=== PATIENT | male | born 1965 | race Caucasian/White ===

== ENCOUNTER 2016-11-16 09:39 | Inpatient (IN) | payer BC ==
[~2016-11-16] VITALS: Ht 185.4 cm; Wt 98.2 kg
[2016-11-16 09:42] VITALS: BP 180/106; PULSE 91; RESP 19; TEMP 97.6; O2SAT 99
[2016-11-16 09:50] VITALS: O2SAT 100
[2016-11-16] MEDS ORDERED: LISI-519 PO (09:50)
[2016-11-16] MEDS ORDERED: SODIUM CHLORIDE 0.9% FLUSH 5 ML FLUSH IV FLUSH PRN (10:00)
[2016-11-16] MEDS ORDERED: DILTIAZEM HCL 25 MG/5 ML VIAL IV PUSH ONE (10:00)
[2016-11-16 10:15] LABS: AUTOMATED NEUTROPHIL # 3.9 TH/MM3 (1.8-7.7); BASOPHIL # 0.1 TH/MM3 (0-0.2); BASOPHIL % 1.1 % (0.0-2.0); EOSINOPHIL # 0.1 TH/MM3 (0-0.4); EOSINOPHIL % 1.7 % (0.0-4.0); HEMATOCRIT 48.4 % (39.0-51.0); HEMO FLAGS DIFF FINAL; LYMPH % 32.5 % (9.0-44.0); LYMPHOCYTE # 2.3 TH/MM3 (1.0-4.8); MEAN CELL VOLUME 87.8 FL (80.0-100.0); MEAN CORPUSCULAR HGB CONC 34.2 % (32.0-36.0); MONO % 11.4 % (0.0-8.0); NEUT % 53.3 % (16.0-70.0); PLATELET COUNT 209 TH/MM3 (150-450); RED BLOOD COUNT 5.51 MIL/MM3 (4.50-5.90); RED CELL DISTRIBUTION WIDTH 12.9 % (11.6-17.2); WHITE BLOOD COUNT 7.2 TH/MM3 (4.0-11.0)
--- NOTE | 2016-11-16 10:22 | RADRPT ---
EXAM DATE/TIME: 11/16/2016 10:07 [place] COMPARISON: No previous studies available for comparison. INDICATIONS : Short of breath and chest pressure. MEDICAL HISTORY : Hypertension. SURGICAL HISTORY : None. ENCOUNTER: Initial ACUITY: 1 day PAIN SCORE: 4/10 LOCATION: Bilateral chest FINDINGS: A single view of the chest demonstrates the lungs to be symmetrically aerated without evidence of mas s, infiltrate or effusion. Minimal and hepatic changes in the lateral right base in the region of th e costophrenic angle. The cardiomediastinal contours are unremarkable. Osseous structures are intact . CONCLUSION: Minimal atelectatic changes above the right hemidiaphragm. Lungs are otherwise clear. Ronnie Phelps MD on November 16, 2016 at 10:18 Board Certified Radiologist. This report was verified electronically.
--- NOTE | 2016-11-16 10:27 | PD ---
HPI . Chest pain Chief Complaint: Chest Pain Time Seen by Provider: 09:58 Travel History International Travel<30 days: No Contact w/Intl Traveler<30days: No Traveled to known affect area: No History of Present Illness HPI This patient presents with the chief complaint of chest pain. Onset of symptoms was this morning. His chest pain is described as a pressure-like sensation which does not radiate. The pain is associated with dyspnea, dizziness and diaphoresis. His symptoms are exacerbated by activity. No relieving factor. Pain is rated 6/10. Patient admits to a history of hypertension but denies any history of heart disease. He denies any previous history of dysrhythmia. PFS Past Medical History Hypertension: Yes Respiratory: Yes (PNEUMOTHORAX X 2) Past Surgical History Other Surgery: Yes (LILIANA HERNIA REPAIR, PNEUMOTHORAX X 2) Social History Alcohol Use: Yes (ROSLYN) Tobacco Use: No Substance Use: No Allergies-Medications (Allergen,Severity, Reaction): Coded Allergies: No Known Allergies (Unverified , 11/16/16) Reported Meds & Prescriptions Reported Meds & Active Scripts Active Reported Lisinopril 5 Mg Tab 5 Mg PO DAILY Review of Systems Except as stated in HPI: all other systems reviewed are Neg General / Constitutional: No: Fever, Chills HENT: Positive: Lightheadedness Cardiovascular: Positive: Chest Pain or Discomfort Respiratory: Positive: Shortness of Breath Gastrointestinal: No: Nausea Physical Exam Narrative GENERAL: Patient is awake and alert and does not appear to be in any acute distress. SKIN: Warm and dry. HEAD: Atraumatic. Normocephalic. EYES: Pupils equal and round. ENT: No nasal bleeding or discharge. Mucous membranes pink and moist. NECK: Trachea midline. Neck is supple. CARDIOVASCULAR: Irregularly irregular rate and rhythm with a rate of approximately 1:30. RESPIRATORY: No accessory muscle use. Lungs are clear with good air movement throughout. GASTROINTESTINAL: Abdomen soft, non-tender, nondistended. MUSCULOSKELETAL: No obvious deformities. No edema. NEUROLOGICAL: Awake and alert. No obvious cranial nerve deficits. Motor grossly within normal limits. Normal speech. PSYCHIATRIC: Appropriate mood and affect; insight and judgment normal. Data Data Last Documented VS Vital Signs Date Time Temp Pulse Resp B/P (MAP) Pulse Ox O2 Delivery O2 Flow Rate FiO2 11/16/16 10:30 79 12 126/75 (92) 100 Nasal Cannula 2.00 11/16/16 09:42 97.6 Orders Orders Electrocardiogram (11/16/16 09:48) Complete Blood Count With Diff (11/16/16 09:48) Basic Metabolic Panel (Bmp) (11/16/16 09:48) Ckmb (Isoenzyme) Profile (11/16/16 09:48) Troponin I (11/16/16 09:48) Chest, Single Ap (11/16/16 09:48) Iv Access Insert/Monitor (11/16/16 09:48) Ecg Monitoring (11/16/16 09:48) Oxygen Administration (11/16/16 09:48) Oximetry (11/16/16 09:48) Blood Pressure (11/16/16 09:58) Vital Signs (11/16/16 09:58) Diltiazem Inj (Cardizem Inj) (11/16/16 10:00) Sodium Chloride 0.9% Flush (Ns Flush) (11/16/16 10:00) CKMB (11/16/16 10:05) CKMB% (11/16/16 10:05) Consult Cardiology (11/16/16 ) (Hub Use Only)Inp Phy Cons/Ref (11/16/16 ) Admit Order (Ed Use Only) (11/16/16 12:26) Labs Laboratory Tests Test 11/16/16 10:05 White Blood Count 7.2 TH/MM3 Red Blood Count 5.51 MIL/MM3 Hemoglobin 16.5 GM/DL Hematocrit 48.4 % Mean Corpuscular Volume 87.8 FL Mean Corpuscular Hemoglobin 30.0 PG Mean Corpuscular Hemoglobin Concent 34.2 % Red Cell Distribution Width 12.9 % Platelet Count 209 TH/MM3 Mean Platelet Volume 9.7 FL Neutrophils (%) (Auto) 53.3 % Lymphocytes (%) (Auto) 32.5 % Monocytes (%) (Auto) 11.4 % Eosinophils (%) (Auto) 1.7 % Basophils (%) (Auto) 1.1 % Neutrophils # (Auto) 3.9 TH/MM3 Lymphocytes # (Auto) 2.3 TH/MM3 Monocytes # (Auto) 0.8 TH/MM3 Eosinophils # (Auto) 0.1 TH/MM3 Basophils # (Auto) 0.1 TH/MM3 CBC Comment DIFF FINAL Differential Comment Blood Urea Nitrogen 18 MG/DL Creatinine 0.96 MG/DL Random Glucose 119 MG/DL Calcium Level 9.4 MG/DL Sodium Level 137 MEQ/L Potassium Level 4.0 MEQ/L Chloride Level 105 MEQ/L Carbon Dioxide Level 24.2 MEQ/L Anion Gap 8 MEQ/L Estimat Glomerular Filtration Rate 83 ML/MIN Total Creatine Kinase 199 U/L Creatine Kinase MB 2.0 NG/ML Troponin I LESS THAN 0.02 NG/ML MDM Medical Decision Making Medical Screen Exam Complete: Yes Emergency Medical Condition: Yes Interpretation(s) EKG shows atrial fibrillation with a rate of 133. No ST segment elevation or depression. Differential Diagnosis Differential diagnosis of chest pain includes but is not limited to musculoskeletal pain, pulmonary embolism, acute coronary syndrome, pneumonia, pleurisy Narrative Course This patient presents with the chief complaint of chest pain. He was found to be in atrial fibrillation with a rapid ventricular response. He has been treated with IV Cardizem and his rate is now in the 70-80 range. He continues to be in atrial fibrillation. He states that he feels much better following rate control. CBC & BMP Diagram 11/16/16 10:05 Calcium Level 9.4 Initial cardiac enzymes are negative. Last Impressions Chest X-Ray 11/16/16 0948 Signed Impressions: Service Date/Time: Wednesday, November 16, 2016 10:07 - CONCLUSION: Minimal atelectatic changes above the right hemidiaphragm. Lungs are otherwise clear. Ronnie Phelps MD This patient has new onset atrial fibrillation. He needs to be admitted to the hospital for further evaluation. Critical Care Narrative Aggregate critical care time was 35 minutes. Time to perform other separately billable procedures was not included in the critical care time. My time did not include minutes spent treating any other patients simultaneously or on activities that did not directly contribute to the patient's treatment. The services I provided to this patient were to treat and/or prevent clinically significant deterioration due to AF with RVR, chest pain I provided critical care services requiring my management, as noted below: Chart data review, documentation time, medication orders and management, vital sign assessments/reviewing monitor data, ordering and reviewing lab tests, ordering and interpreting/reviewing x-rays and diagnostic studies, care of the patient and discussion of the patient with the admitting physicians Physician Communication Physician Communication Dr. Valerio and Dr. Izquierdo Diagnosis Primary Impression: Chest pain Qualified Codes: R07.9 - Chest pain, unspecified Additional Impression: Atrial fibrillation with RVR Admitting Information Admitting Physician Requests: Admit Condition: Stable Tanya Higginbotham MD Nov 16, 2016 10:27
[2016-11-16 10:30] VITALS: BP 126/75; PULSE 79; RESP 12; O2SAT 100
[2016-11-16 10:38] LABS: CREATINE KINASE 199 U/L (39-308)
[2016-11-16 10:40] LABS: ANION GAP 8 MEQ/L (5-15); BICARBONATE 24.2 MEQ/L (21.0-32.0); BLOOD UREA NITROGEN 18 MG/DL (7-18); CHLORIDE 105 MEQ/L (98-107); GLOMERULAR FILTRATION RATE 83 ML/MIN (>89); SODIUM (NA) 137 MEQ/L (136-145)
[2016-11-16] MEDS ORDERED: ONDANSETRON HCL 4 MG/2 ML VIAL IV PRN (12:45)
[2016-11-16] MEDS ORDERED: DOCUSATE SODIUM 50 MG/SENNA 8.6 MG TAB PO PRN (12:45)
[2016-11-16] MEDS ORDERED: ACETAMINOPHEN 325 MG TAB PO PRN (12:45)
[2016-11-16] MEDS ORDERED: SODIUM CHLORIDE 0.9% FLUSH 10 ML FLUSH IV FLUSH PRN (12:45)
[2016-11-16 14:26] VITALS: BP 117/86; PULSE 96; RESP 26; O2SAT 97
--- NOTE | 2016-11-16 14:34 | HHI.HP ---
[facility] Admission Diagnosis chest pain, new onset AF with RVR Diagnoses: (1) Benign hypertension (2) Atrial fibrillation with RVR (3) Chest pain Chief Complaint: Chest pressure Travel History International Travel<30 Days: No Contact w/Intl Traveler <30 Da: No Traveled to Known Affected Are: No History of Present Illness 50-year-old man with a history of hypertension who presented to the ED for evaluation of acute onset of chest tightness, pressure like rated 6/10 in intensity and described as an elephant sitting on my chest associated with shortness of breath as well as dizziness lasting over 30 minutes. Patient states, he woke up around 3 AM with a sensation of severe chest tightness, but denies any orthopnea. He denies any radiation of symptoms which lasted way past 4:30 AM. He has no prior history of heart catheterization. While in the ED, patient was found to be in A. fib and denies any prior history. There is no report of GI bleeding, hemoptysis or bowel dysfunction. Patient endorses strong family history of heart disease Review of Systems Except as stated in HPI: all other systems reviewed are Neg Past Family Social History Past Medical History Hypertension Past Surgical History Bilateral Hernia repair Reported Medications Lisinopril 5 mg daily Allergies: Coded Allergies: No Known Allergies (Unverified , 11/16/16) Family History Strong family history of heart disease with his paternal grandfather from heart attack. Social History Alcohol Use: Yes (ROSLYN) Tobacco Use: No Substance Use: No Physical Exam Vital Signs Vital Signs Date Time Temp Pulse Resp B/P (MAP) Pulse Ox O2 Delivery O2 Flow Rate FiO2 11/16/16 14:26 96 26 117/86 (96) 97 Room Air 11/16/16 10:30 79 12 126/75 (92) 100 Nasal Cannula 2.00 11/16/16 09:50 100 Room Air 11/16/16 09:50 Nasal Cannula 2.00 11/16/16 09:45 140 100 Room Air 11/16/16 09:42 97.6 91 19 180/106 (130) 99 Physical Exam GENERAL: This is a well-nourished, well-developed patient, in no apparent distress. SKIN: No rashes, ecchymoses or lesions. Cool and dry. HEAD: Atraumatic. Normocephalic. No temporal or scalp tenderness. EYES: Pupils equal round and reactive. Extraocular motions intact. No scleral icterus. No injection or drainage. ENT: Nose without bleeding, purulent drainage or septal hematoma. Throat without erythema, tonsillar hypertrophy or exudate. Uvula midline. Airway patent. NECK: Trachea midline. No JVD or lymphadenopathy. Supple, nontender, no meningeal signs. CARDIOVASCULAR: Regular rate and rhythm without murmurs, gallops, or rubs. RESPIRATORY: Clear to auscultation. Breath sounds equal bilaterally. No wheezes , rales, or rhonchi. GASTROINTESTINAL: Abdomen soft, non-tender, nondistended. No hepato-splenomegaly , or palpable masses. No guarding. MUSCULOSKELETAL: Extremities without clubbing, cyanosis, or edema. No joint tenderness, effusion, or edema noted. No calf tenderness. Negative Homans sign bilaterally. NEUROLOGICAL: Awake and alert. Cranial nerves II through XII intact. Motor and sensory grossly within normal limits. Five out of 5 muscle strength in all muscle groups. Normal speech. Laboratory Laboratory Tests Test 11/16/16 10:05 11/16/16 12:55 White Blood Count 7.2 Red Blood Count 5.51 Hemoglobin 16.5 Hematocrit 48.4 Mean Corpuscular Volume 87.8 Mean Corpuscular Hemoglobin 30.0 Mean Corpuscular Hemoglobin Concent 34.2 Red Cell Distribution Width 12.9 Platelet Count 209 Mean Platelet Volume 9.7 Neutrophils (%) (Auto) 53.3 Lymphocytes (%) (Auto) 32.5 Monocytes (%) (Auto) 11.4 Eosinophils (%) (Auto) 1.7 Basophils (%) (Auto) 1.1 Neutrophils # (Auto) 3.9 Lymphocytes # (Auto) 2.3 Monocytes # (Auto) 0.8 Eosinophils # (Auto) 0.1 Basophils # (Auto) 0.1 CBC Comment DIFF FINAL Differential Comment Blood Urea Nitrogen 18 Creatinine 0.96 Random Glucose 119 Calcium Level 9.4 Sodium Level 137 Potassium Level 4.0 Chloride Level 105 Carbon Dioxide Level 24.2 Anion Gap 8 Estimat Glomerular Filtration Rate 83 Total Creatine Kinase 199 Creatine Kinase MB 2.0 Troponin I LESS THAN 0.02 Urine Opiates Screen NEG Urine Barbiturates Screen NEG Urine Amphetamines Screen NEG Urine Benzodiazepines Screen NEG Urine Cocaine Screen NEG Urine Cannabinoids Screen NEG Result Diagram: 11/16/16 1005 11/16/16 1005 Imaging Last Impressions Chest X-Ray 11/16/16 0948 Signed Impressions: Service Date/Time: Wednesday, November 16, 2016 10:07 - CONCLUSION: Minimal atelectatic changes above the right hemidiaphragm. Lungs are otherwise clear. MD Raj Kate VTE Risk Assessment Capalyssa VTE Risk Assessment: No/Low Risk (score <= 1) Caprini Risk Assessment Model Point Value = 1 Point Value = 2 Point Value = 3 Point Value = 5 Age 41-60 Minor surgery BMI > 25 kg/m2 Swollen legs Varicose veins or History of unexplained or recurrent spontaneous Oral contraceptives or hormone replacement Sepsis (< 1 month) Serious lung disease, including pneumonia (< 1 month) Abnormal pulmonary function Acute myocardial infarction Congestive heart failure (< 1 month) History of inflammatory bowel disease Medical patient at bed rest Age 61-74 Arthroscopic surgery Major open surgery (> 45 min) Laparoscopic surgery (> 45 min) Malignancy Confined to bed (> 72 hours) Immobilizing plaster cast Central venous access Age >= 75 History of VTE Family history of VTE Factor V Leiden Prothrombin [id number] Lupus anticoagulant Anticardiolipin antibodies Elevated serum homocysteine Heparin-induced thrombocytopenia Other congenital or acquired thrombophilia Stroke (< 1 month) Elective arthroplasty Hip, pelvis, or leg fracture Acute spinal cord injury (< 1 month) Prophylaxis Regimen Total Risk Factor Score Risk Level Prophylaxis Regimen 0-1 Low Early ambulation 2 Moderate Order ONE of the following: *Sequential Compression Device (SCD) *Heparin 5000 units SQ BID 3-4 Higher Order ONE of the following medications: *Heparin 5000 units SQ TID *Enoxaparin/Lovenox 40 mg SQ daily (WT < 150 kg, CrCl > 30 mL/min) *Enoxaparin/Lovenox 30 mg SQ daily (WT < 150 kg, CrCl > 10-29 mL/min) *Enoxaparin/Lovenox 30 mg SQ BID (WT < 150 kg, CrCl > 30 mL/min) AND/OR *Sequential Compression Device (SCD) 5 or more Highest Order ONE of the following medications: *Heparin 5000 units SQ TID (Preferred with Epidurals) *Enoxaparin/Lovenox 40 mg SQ daily (WT < 150 kg, CrCl > 30 mL/min) *Enoxaparin/Lovenox 30 mg SQ daily (WT < 150 kg, CrCl > 10-29 mL/min) *Enoxaparin/Lovenox 30 mg SQ BID (WT < 150 kg, CrCl > 30 mL/min) AND *Sequential Compression Device (SCD) Assessment and Plan Problem List: (1) Atrial fibrillation with RVR ICD Code: I48.91 - Unspecified atrial fibrillation Status: Acute (2) Chest pain ICD Code: R07.9 - Chest pain, unspecified Status: Acute (3) Benign hypertension ICD Code: I10 - Essential (primary) hypertension Assessment and Plan 50-year-old man with New onset atrial fibrillation Spontaneously resolve with Cardizem IV bolus 1 in ED If recurrence, consider Cardizem drip Rule out thyroid dysfunction with TSH and free T4 Continue ACS ruled out per protocol with serial cardiac enzyme and EKGs Start aspirin 81 mg daily and check lipid profile Check 2-D echo and Lexiscan stress a.m. Consult cardiology Atypical chest pain Treatment as in above Hypertension Resume Norvasc 5 mg daily DVT prophylaxis: Bilateral SCDs Code Status Full code Discussed Condition With Patient, ED physician Physician Certification 2 Midnight Certification Type: Admission for Inpatient Services Order for Inpatient Services The services are ordered in accordance with Medicare regulations or non- Medicare payer requirements, as applicable. In the case of services not specified as inpatient-only, they are appropriately provided as inpatient services in accordance with the 2-midnight benchmark. Estimated LOS (days): 2 days is the estimated time the patient will need to remain in the hospital, assuming treatment plan goals are met and no additional complications. Post-Hospital Plan: Not yet determined Problem Qualifiers (1) Chest pain: Qualified Codes: R07.9 - Chest pain, unspecified Pérez Izquierdo MD Nov 16, 2016 14:33
[2016-11-16] MEDS ORDERED: CYCL1TAB29 PO (14:59)
[2016-11-16] MEDS ORDERED: DICL50TA3 PO (14:59)
[2016-11-16] MEDS ORDERED: NAPR500T PO (14:59)
[2016-11-16] MEDS ORDERED: META1TAB19 PO (14:59)
[2016-11-16] MEDS ORDERED: AMLO5TAB2 PO (14:59)
[2016-11-16 16:55] LABS: CREATINE KINASE 144 U/L (39-308)
[2016-11-16 18:00] VITALS: BP 141/90; PULSE 75; RESP 20; TEMP 97.8; O2SAT 97
--- NOTE | 2016-11-16 19:29 | EKG ---
Date Performed: 11/16/2016 Time Performed: 09:44:35 PTAGE: 50 years EKG: ATRIAL FIBRILLATION WITH RAPID VENTRICULAR RESPONSE NONSPECIFIC T-WAVE ABNORMALITY ABNORMAL ECG NO PREVIOUS TRACING DOCTOR: Roshan Gonzalez Interpretating Date/Time 11/16/2016 19:27:39
[2016-11-16 20:00] VITALS: BP 127/81; PULSE 82; PULSE 85; RESP 18; TEMP 97.4; O2SAT 96
[2016-11-16] MEDS: CYCLOBENZAPRINE HCL 10 MG TAB PO SCH (20:31)
[2016-11-16] MEDS: SODIUM CHLORIDE 0.9% FLUSH 10 ML FLUSH IV FLUSH SCH (20:31)
[2016-11-16] MEDS ORDERED: TEMAZEPAM 15 MG CAP PO PRN (21:00)
[2016-11-16 23:04] LABS: MAGNESIUM 2.3 MG/DL (1.5-2.5)
[2016-11-16 23:13] LABS: CREATINE KINASE 121 U/L (39-308); FREE T4 0.96 NG/DL (0.76-1.46)
[2016-11-17] VITALS: BP 107/81; PULSE 73; RESP 18; TEMP 97.3; O2SAT 96
[2016-11-17 04:00] VITALS: BP 103/62; PULSE 59; RESP 16; TEMP 97.5; O2SAT 96
--- NOTE | 2016-11-17 06:38 | MB ---
cc: LINCOLN IZQUIERDO M.D. DATE OF CONSULTATION 11/16/2016 REASON FOR CONSULTATION Atrial fibrillation, chest pain. HISTORY OF THE PRESENT ILLNESS The patient is a very pleasant 50-year-old white male with a history of hypertension, spontaneous pneumothorax about 8 years ago, who awoke this morning with moderate to severe substernal chest discomfort described as "someone sitting on my chest." He has felt dyspneic most of today. In addition, since waking up this morning with the chest discomfort, he has noted a slight fluttering sensation. At times he has felt lightheaded for a few minutes. He denies syncope, near-syncope, pedal edema, paroxysmal nocturnal dyspnea, orthopnea. Since coming into the hospital his chest discomfort has improved, although it persists. He also denies pleurisy, cough, hemoptysis, fevers. PAST MEDICAL HISTORY 1. Hypertension. 2. Spontaneous pneumothoraces twice about 8 years ago. PAST SURGICAL HISTORY Bilateral hernia repair. CARDIAC MEDICATIONS AT HOME The patient believes he has been on amlodipine most recently for hypertension. ALLERGIES No known drug allergies. FAMILY HISTORY The patient's father sustained a myocardial infarction in his 70s. There is no family history of early myocardial infarction. SOCIAL HISTORY The patient denies any history of alcohol or tobacco abuse. REVIEW OF SYSTEMS As in the History of Present Illness, otherwise negative or noncontributory. He also denies headache, visual changes, unilateral weakness or numbness, abdominal pain, melena. He has noted intermittent bright red blood per rectum in the past from hemorrhoids. PHYSICAL EXAMINATION VITAL SIGNS: His blood pressure is 117/86 with a pulse of 105, respirations 26. IN GENERAL: He is a well-developed, well-nourished white male in no acute distress. HEENT/NECK EXAMINATION: Jugular venous pressure is normal. Carotid pulses are 2+ bilaterally and without bruits. EXAMINATION OF THE CHEST: Clear lung nicole. CARDIOVASCULAR: On cardiac examination he has an irregularly irregular rhythm without S3 or murmur. ABDOMEN: On abdominal examination he has a soft, nontender abdomen. Bowel sounds are present. There is no definite hepatosplenomegaly. EXTREMITIES: Examination of the extremities reveals no clubbing, cyanosis or edema. CHEST X-RAY Shows no acute disease. LABORATORY DATA Includes normal CBC, normal basic metabolic profile except for glucose 119, CK 199. Troponin less than 0.02. EKG Shows atrial fibrillation with a rapid ventricular response, nonspecific inferior T-wave abnormality. IMPRESSION Atypical chest pain, newly diagnosed atrial fibrillation in this 50-year-old white male with a history of hypertension. At this time he remains in atrial fibrillation with slightly elevated heart rates. His chest pains are overall atypical for myocardial ischemia. Despite constant chest discomfort for the past 12 hours, initial cardiac enzymes are negative for myocardial infarction. EKG shows nonspecific T-wave changes. Clinically there is no evidence for pulmonary embolism. The etiology of the atrial fibrillation may be his history of hypertension. With respect to his thromboembolic risk, it is overall low (CHADS-VASc score I). RECOMMENDATIONS 1. Would switch his amlodipine to Cardizem CD. 2. Continue daily aspirin. 3. Await his 2-D echo. 4. Check a Lexiscan nuclear stress test in the morning. 5. If his nuclear stress test and echo are unremarkable, and if his heart rates are under control, he can be discharged home tomorrow afternoon from a cardiac standpoint. Lincoln Izquierdo MD [facility] /4:23 PM /6:28 AM [facility]
--- NOTE | 2016-11-17 07:29 | PD.CARD.PN ---
Subjective Subjective Remarks Denies CP, dyspnea, palpitations, dizziness. Slept well. Objective Medications Item Value Date Time Aspirin 81 mg 11/17/16 0900 (Aspirin Chew) DAILY/PO Diltiazem HCl 180 mg 11/17/16 0900 (Cardizem Cd) DAILY/PO Vital Signs / I&O Vital Signs Date Time Temp Pulse Resp B/P (MAP) Pulse Ox O2 Delivery O2 Flow Rate FiO2 11/17/16 04:00 97.5 59 16 103/62 (76) 96 11/17/16 04:00 Room Air 11/17/16 00:00 Room Air 11/17/16 00:00 97.3 73 18 107/81 (90) 96 11/16/16 20:00 97.4 85 18 127/81 (96) 96 11/16/16 20:00 Room Air 11/16/16 20:00 82 11/16/16 18:00 97.8 75 20 141/90 (107) 97 11/16/16 17:30 11/16/16 14:26 96 26 117/86 (96) 97 Room Air 11/16/16 10:30 79 12 126/75 (92) 100 Nasal Cannula 2.00 11/16/16 09:50 100 Room Air 11/16/16 09:50 Nasal Cannula 2.00 11/16/16 09:45 140 100 Room Air 11/16/16 09:42 97.6 91 19 180/106 (130) 99 I/O 11/16/16 11/16/16 11/16/16 11/17/16 11/17/16 11/17/16 07:00 15:00 23:00 07:00 15:00 23:00 Intake Total 480 ml Output Total 1150 ml Balance -670 ml Intake Oral 480 ml Output Urine Total 1150 ml # Bowel Movements 1 Physical Exam GENERAL: Well developed, well nourished. No acute distress. HEENT: Jugular venous pressure is normal. CHEST: Lungs clear to auscultation bilaterally. Unlabored respiratory effort. CARDIAC: Regular rate and rhythm without S3, S4, or murmur. ABDOMEN: Soft, nontender, no hepatosplenomegaly. Bowel sounds present. EXTREMITIES: No clubbing, cyanosis, or edema. Laboratory Laboratory Tests Test 11/16/16 10:05 11/16/16 12:55 11/16/16 15:50 11/16/16 22:03 White Blood Count 7.2 TH/MM3 Red Blood Count 5.51 MIL/MM3 Hemoglobin 16.5 GM/DL Hematocrit 48.4 % Mean Corpuscular Volume 87.8 FL Mean Corpuscular Hemoglobin 30.0 PG Mean Corpuscular Hemoglobin Concent 34.2 % Red Cell Distribution Width 12.9 % Platelet Count 209 TH/MM3 Mean Platelet Volume 9.7 FL Neutrophils (%) (Auto) 53.3 % Lymphocytes (%) (Auto) 32.5 % Monocytes (%) (Auto) 11.4 % Eosinophils (%) (Auto) 1.7 % Basophils (%) (Auto) 1.1 % Neutrophils # (Auto) 3.9 TH/MM3 Lymphocytes # (Auto) 2.3 TH/MM3 Monocytes # (Auto) 0.8 TH/MM3 Eosinophils # (Auto) 0.1 TH/MM3 Basophils # (Auto) 0.1 TH/MM3 CBC Comment DIFF FINAL Differential Comment Blood Urea Nitrogen 18 MG/DL Creatinine 0.96 MG/DL Random Glucose 119 MG/DL Calcium Level 9.4 MG/DL Sodium Level 137 MEQ/L Potassium Level 4.0 MEQ/L Chloride Level 105 MEQ/L Carbon Dioxide Level 24.2 MEQ/L Anion Gap 8 MEQ/L Estimat Glomerular Filtration Rate 83 ML/MIN Total Creatine Kinase 199 U/L 144 U/L 121 U/L Creatine Kinase MB 2.0 NG/ML Troponin I LESS THAN 0.02 NG/ML LESS THAN 0.02 NG/ML LESS THAN 0.02 NG/ML Urine Opiates Screen NEG Urine Barbiturates Screen NEG Urine Amphetamines Screen NEG Urine Benzodiazepines Screen NEG Urine Cocaine Screen NEG Urine Cannabinoids Screen NEG Magnesium Level 2.3 MG/DL Free Thyroxine 0.96 NG/DL Thyroid Stimulating Hormone 3rd Gen 3.940 uIU/ML Assessment and Plan Problem List: (1) Paroxysmal atrial fibrillation ICD Codes: I48.0 - Paroxysmal atrial fibrillation Status: Acute Plan: Back in NSR this morning. Thromboembolic risk overall low. Recommend continue Cardizem, aspirin. OK to discharge later today if nuclear stress test and echo unremarkable. (2) Chest pain ICD Codes: R07.9 - Chest pain, unspecified Status: Acute Plan: CP resolved. Cardiac enzymes negative for FL. Await nuclear stress test. (3) Hypertension ICD Codes: I10 - Essential (primary) hypertension Status: Chronic Plan: Mostly normotensive. Continue Cardizem. Code Status full code Discussed Condition With patient Problem Qualifiers (1) Chest pain: Qualified Codes: R07.9 - Chest pain, unspecified (2) Hypertension: Qualified Codes: I10 - Essential (primary) hypertension Eric Valerio MD Nov 17, 2016 07:29
[2016-11-17 08:00] VITALS: BP 135/76; PULSE 71; RESP 18; TEMP 97.7; O2SAT 98
--- NOTE | 2016-11-17 08:32 | EKG ---
Date Performed: 11/16/2016 Time Performed: 15:59:32 PTAGE: 50 years EKG: ATRIAL FIBRILLATION NONSPECIFIC T-WAVE ABNORMALITY ABNORMAL RHYTHM ECG PREVIOUS TRACING : 11/16/2016 09.44 No significant change from previous tracing noted. DOCTOR: Eric Valerio Interpretating Date/Time 11/17/2016 08:31:09
[2016-11-17 08:41] LABS: HDL CHOLESTEROL 42.2 MG/DL (40.0-60.0)
[2016-11-17] MEDS ORDERED: ASPIRIN 81 MG CHEW TAB PO SCH (09:00)
[2016-11-17] MEDS ORDERED: DILTIAZEM-CD 180 MG CAP ER PO SCH (09:00)
[2016-11-17] MEDS ORDERED: LISINOPRIL 5 MG TAB PO SCH (09:00)
[2016-11-17] MEDS ORDERED: amLODIPine BESYLATE 5 MG TAB PO SCH (09:00)
[2016-11-17] MEDS: CYCLOBENZAPRINE HCL 10 MG TAB PO SCH (09:17)
[2016-11-17] MEDS: SODIUM CHLORIDE 0.9% FLUSH 10 ML FLUSH IV FLUSH SCH (09:19)
[2016-11-17] MEDS ORDERED: ASPI81CH25 PO (10:48)
[2016-11-17] MEDS ORDERED: CARD180C5 PO (10:48)
--- NOTE | 2016-11-17 10:55 | HHI.PR ---
Subjective Remarks Follow-up new onset atrial fibrillation/atypical chest pain 11/17/16-patient seen and examined, denies any chest pain or shortness of breath. Currently rate control. Nothing by mouth pending stress test. Objective Vitals Vital Signs Date Time Temp Pulse Resp B/P (MAP) Pulse Ox O2 Delivery O2 Flow Rate FiO2 11/17/16 08:00 97.7 71 18 135/76 (95) 98 11/17/16 07:15 98 Room Air 11/17/16 04:00 97.5 59 16 103/62 (76) 96 11/17/16 04:00 Room Air 11/17/16 00:00 Room Air 11/17/16 00:00 97.3 73 18 107/81 (90) 96 11/16/16 20:00 97.4 85 18 127/81 (96) 96 11/16/16 20:00 Room Air 11/16/16 20:00 82 11/16/16 18:00 97.8 75 20 141/90 (107) 97 11/16/16 17:30 11/16/16 14:26 96 26 117/86 (96) 97 Room Air I/O 11/16/16 11/16/16 11/16/16 11/17/16 11/17/16 11/17/16 06:59 14:59 22:59 06:59 14:59 22:59 Intake Total 480 ml Output Total 1150 ml Balance -670 ml Intake Oral 480 ml Output Urine Total 1150 ml # Bowel Movements 1 Result Diagram: 11/16/16 1005 11/16/16 1005 Imaging Last Impressions Chest X-Ray 11/16/16 0948 Signed Impressions: Service Date/Time: Wednesday, November 16, 2016 10:07 - CONCLUSION: Minimal atelectatic changes above the right hemidiaphragm. Lungs are otherwise clear. Ronnie Phelps MD Objective Remarks GENERAL: NAD SKIN: Warm and dry. HEAD: Normocephalic. EYES: No scleral icterus. No injection or drainage. NECK: Supple, trachea midline. No JVD or lymphadenopathy. CARDIOVASCULAR: Irregular Regular rate and rhythm without murmurs, gallops, or rubs. RESPIRATORY: Breath sounds equal bilaterally. No accessory muscle use. GASTROINTESTINAL: Abdomen soft, non-tender, nondistended. MUSCULOSKELETAL: No cyanosis, or edema. BACK: Nontender without obvious deformity. No CVA tenderness. Procedures none A/P Problem List: (1) Atrial fibrillation with RVR ICD Code: I48.91 - Unspecified atrial fibrillation Status: Acute (2) Chest pain ICD Code: R07.9 - Chest pain, unspecified Status: Acute (3) Benign hypertension ICD Code: I10 - Essential (primary) hypertension Assessment and Plan 50-year-old man with New onset atrial fibrillation Spontaneously resolve with Cardizem IV bolus 1 in ED Currently on [id number] mg daily thyroid dysfunction ruled out with TSH and free T4 ACS ruled out per protocol with serial cardiac enzyme and EKGs Continue aspirin 81 mg daily 2-D echo and Lexiscan stress a.m. pending and if unremarkable patient will be discharged home Appreciate input from cardiology Atypical chest pain Treatment as in above Hypertension Normotensive on Cardizem 180 mg daily Hyperlipidemia Start Lipitor 10 mg at bedtime DVT prophylaxis: Bilateral SCDs Problem Qualifiers (1) Chest pain: Qualified Codes: R07.9 - Chest pain, unspecified Pérez Izquierdo MD Nov 17, 2016 10:55
[2016-11-17 12:00] VITALS: BP 120/79; PULSE 71; RESP 18; TEMP 98; O2SAT 97
--- NOTE | 2016-11-17 12:37 | ECHRPT ---
Indication: Hypertensive Heart D CONCLUSIONS Normal left ventricular size. Wall thickness is normal. The left ventricular systolic function is mildly reduced with an estimated ejection fraction in the range of 45- 50%. Trace mitral valve regurgitation. BP: 180 / 106 HR: 140 Rhythm: Sinus MEASUREMENTS (Male / Female) Normal Values Technical Quality:Good 2D ECHO LV Diastolic Diameter PLAX 4.7 cm 4.2 - 5.9 / 3.9 - 5.3 cm LV Systolic Diameter PLAX 3.8 cm IVS Diastolic Thickness 1.1 cm 0.6 - 1.0 / 0.6 - 0.9 cm LVPW Diastolic Thickness 0.9 cm 0.6 - 1.0 / 0.6 - 0.9 cm LV Relative Wall Thickness 0.4 LA Systolic Diameter LX 3.7 cm 3.0 - 4.0 / 2.7 - 3.8 cm M-MODE Aortic Root Diameter MM 3.3 cm AV Cusp Separation MM 2.3 cm DOPPLER AV Peak Velocity 112.0 cm/s AV Peak Gradient 5.0 mmHg LVOT Peak Velocity 103.0 cm/s LVOT Peak Gradient 4.2 mmHg Mitral E Point Velocity 43.9 cm/s Mitral A Point Velocity 40.5 cm/s Mitral E to A Ratio 1.1 TR Peak Velocity 190.0 cm/s TR Peak Gradient 14.4 mmHg FINDINGS LEFT VENTRICLE Normal left ventricular size. Wall thickness is normal. The left ventricular systolic function is mildly reduced with an estimated ejection fraction in the range of 45- 50%. RIGHT VENTRICLE Normal right ventricular size and systolic function. LEFT ATRIUM The left atrial size is normal. RIGHT ATRIUM The right atrial size is normal. ATRIAL SEPTUM Normal atrial septal thickness without atrial level shunting by limited color doppler interrogation. AORTA The aortic root and proximal ascending aorta are normal in size on limited imaging. MITRAL VALVE Trace mitral valve regurgitation. AORTIC VALVE Trileaflet aortic valve. No aortic valve stenosis or regurgitation. TRICUSPID VALVE Structurally normal tricuspid valve. No tricuspid valve stenosis or regurgitation. PULMONARY VALVE The pulmonary valve is not well visualized. VESSELS The inferior vena cava is normal in size. PERICARDIUM No pericardial effusion. Turner Durant MD, FACC (Electronically Signed) Final Date:17 November 2016 12:36
[2016-11-17] MEDS ORDERED: REGADENOSON INJ 0.4 MG/5 ML SYR ONE (12:55)
--- NOTE | 2016-11-17 14:46 | RADRPT ---
EXAM DATE/TIME: 11/17/2016 12:30 [facility] COMPARISON: No previous studies available for comparison. INDICATIONS : Chest tightness. Atrial fibrillation. Angina. DOSE: 26.2 mCi Tc99m Myoview at stress. 8.1 mCi Tc99m Myoview at rest. 0.4 mg Lexiscan STRESS SYMPTOMS: Shortness of breath. EJECTION FRACTION: 43% MEDICAL HISTORY : Hernia, umbilical. SURGICAL HISTORY : None. ENCOUNTER: Initial ACUITY: 2 days PAIN SCALE: 6/10 LOCATION: Retrosternal chest TECHNIQUE: The patient underwent pharmacologic stress with infusion of prescribed dose. Continuous ECG tracing was monitored during stress. Gated SPECT imaging was performed after stress and conventional SPECT i maging was performed at rest. The examination was performed on a SPECT/CT scanner, both attenuation and non-corrected datasets were reviewed. FINDINGS: DISTRIBUTION: The maximum perfused segment at stress is in the anterolateral wall. PERFUSION STUDY: The pattern of perfusion at stress demonstrates slight reduction in perfusion to the posterior basal and inferior wall with mild redistribution during rest. GATED STUDY: There is intact wall motion and thickening without hypokinetic or dyskinetic segments. CONCLUSION: Mild ischemia possibly basal and inferior salgado. RISK CATEGORY: Low (<1% Annual Mortality Rate) Julia Hanks MD on November 17, 2016 at 14:42 Board Certified Radiologist. This report was verified electronically.
[2016-11-17] MEDS ORDERED: LIPI10TA PO (15:01)
--- NOTE | 2016-11-17 15:02 | HHI.PR ---
Addendum to Inpatient Note Addendum Reason: Additional Documentation Additional Information Nuclear stress test negative, therefore patient will be discharged home Discharge patient to home Condition on discharge: Improved Regular Diet as tolerated Ad Shellie activity Rx written:see EMR Follow-up with primary care physician in 1 week Pérez Izquierdo MD Nov 17, 2016 15:01
[2016-11-17] MEDS ORDERED: ATORVASTATIN 10 MG TAB PO SCH (21:00)
[2016-11-17] MEDS ORDERED: METOPROLOL TARTRATE 25 MG TAB PO SCH (21:00)
== END 2016-11-17 16:15 | disposition home or self-care (01) | DRG 310 ==
LOC: NEPC 09:39 → NEDA 12:28 → N04A 17:52
PROVIDERS: ADMIT Hospitalist; ATTEND Hospitalist
DX: I48.0 Paroxysmal atrial fibrillation (principal); I10 Essential (primary) hypertension; E78.5 Hyperlipidemia, unspecified; R07.89 Other chest pain; Z82.49 Family history of ischemic heart disease and other diseases of the circulatory system
CPT/HCPCS: 71010; 78452; 80048; 80061; 80307; 82550; 82552; 83735; 84439; 84443; 84484; 85025; 93005; 93017; 93306; 96374; A9502; J2785